=== PATIENT | male | born 1960 | race Caucasian/White ===

== ENCOUNTER → 2022-12-06 | Outpatient (CLI) | payer OTHER | END | disposition home or self-care (01) | LOC: LAB SHORT 07:07 → LAB 07:07 | DX: D11.0 Benign neoplasm of parotid gland (principal) | CPT/HCPCS: 88173 ==

== ENCOUNTER 2022-12-24 07:22 | Day surgery (SDC) | payer OTHER ==
[~2022-12-24] VITALS: Ht 182.9 cm; Wt 100.9 kg
[2022-12-24] MEDS ORDERED: LISI10 PO (08:23)
[2022-12-24] MEDS ORDERED: ATOR10 PO (08:23)
--- NOTE | 2022-12-24 10:24 | NUR ---
12/24/22 1024 Pauline Wade UNDER HEAD, PILLOW UNDER KNEES, RIGHT ARM TUCKED, LEFT ARM SECURED ON PADDED ARM BOARD.
--- NOTE | 2022-12-24 11:48 | NUR ---
12/24/22 1148 ANAHI TABARES PT HAS A AVERY DRAIN, INSERTION BEHIND RIGHT EAR. EXTRA BACITRACIN GIVEN TO PT FOR HOME
--- NOTE | 2022-12-24 12:03 | NUR ---
12/24/22 1203 Zamzam Castle PT EDUCATED ON USE OF INCENTIVE SPIROMETER. PT STATED THEIR UNDERSTANDING.
[2022-12-24 12:06] VITALS: BP 109/71
== END 2022-12-24 12:30 | disposition home or self-care (01) ==
LOC: ORSCSDS 07:22
PROVIDERS: Otolaryngology
PROC: 0CB80ZZ Excision of Right Parotid Gland, Open Approach (ICD-10-PCS; principal; 2022-12-24 08:45)
DX: D11.0 Benign neoplasm of parotid gland (principal); I10 Essential (primary) hypertension; E78.5 Hyperlipidemia, unspecified; I25.10 Atherosclerotic heart disease of native coronary artery without angina pectoris; Z87.891 Personal history of nicotine dependence; Z79.899 Other long term (current) drug therapy
CPT/HCPCS: 88307; J1100; J2250; J2405; J2704; J3010; J7120

== ENCOUNTER 2023-06-25 11:08 | Day surgery (SDC) | payer OTHER ==
[2023-06-25] VITALS (16 sets, daily range): BP systolic 99–139; BP diastolic 65–95
[~2023-06-25] VITALS: Ht 182.9 cm; Wt 95.5 kg
[~2023-06-25 11:08] MED LIST: ATOR10 PO; IBUP400 PO; LISI10 PO
--- NOTE | 2023-06-25 13:02 | NUR ---
Ambulatory in Day Surgery Patient confirms NPO status and agrees with scheduled surgery. History, Chart, Medications and Allergies reviewed before start of procedure.Pre-Op teaching done. Pt verbalizes understanding.
--- NOTE | 2023-06-25 18:49 | NUR ---
PT ARRIVED TO UNIT FROM PACU. SPOUSE BEDSIDE. PT A&OX4. DENIES PAIN. DRESSING TO RLE CDI/ARIADNE WRAP AND AQUACEL. POLAR PACK IN PLACE.
[2023-06-26 02:37] VITALS: BP 115/73
--- NOTE | 2023-06-26 05:01 | NUR ---
SUMMARY PT DISCOMFORT HAS BEEN MINIMAL. PT AMBULATORY WITH GB AND FWW. PT HAS BEEN EATING AND DRINKING. PT HAS NO COMPLAINTS. PT DRESSING C/D/I. CALL LIGHT IN REACH.
[2023-06-26 05:28] LABS: BASOPHILS ABSOLUTE AUTO 0.04 K/mm3 (0.00-0.23); BASOPHILS PERCENT AUTO 0 % (0-2); EOSINOPHILS ABSOLUTE AUTO 0.06 K/mm3 (0.00-0.68); EOSINOPHILS PERCENT AUTO 0 % (0-6); Hematocrit 44.6 % (37.0-53.0); Hemoglobin 15.3 g/dL (13.5-17.5); IMMATURE GRAN ABSOLUTE AUTO 0.06 K/mm3 (0.00-0.10); IMMATURE GRAN PERCENT AUTO 0 % (0-1); LYMPHOCYTES ABSOLUTE AUTO 1.95 K/mm3 (0.84-5.20); LYMPHOCYTES PERCENT AUTO 12 % (21-46); MONOCYTES ABSOLUTE AUTO 0.97 K/mm3 (0.16-1.47); MONOCYTES PERCENT AUTO 6 % (4-13); Mean Corpuscular HGB 32.3 pg (26.0-34.0); Mean Corpuscular HGB Conc 34.3 g/dL (31.5-36.5); Mean Corpuscular Volume 94 fL (80-100); Mean Platelet Volume 10.6 fL (9.1-12.4); NEUTROPHILS PERCENT AUTO 81 % (41-73); Platelet Count 230 K/mm3 (150-400); RDW Coefficient Variation 12.8 % (11.7-14.2); RDW Standard Deviation 44.2 fL (35.1-46.3); Red Blood Cell Count 4.73 M/mm3 (4.30-5.90); White Blood Cell Count 16.18 K/mm3 (4.00-11.30)
[2023-06-26 05:59] LABS: Bun/Creatinine Ratio 12.5 (12.0-20.0); Calcium, Blood 9.4 mg/dL (8.5-10.1); Creatinine, Blood 0.56 mg/dL (0.60-1.20); Potassium, Blood 4.1 mmol/L (3.5-5.5)
[2023-06-26 08:26] VITALS: BP 146/85
[2023-06-26] MEDS ORDERED: ASPI81CH PO (08:31)
[2023-06-26] MEDS ORDERED: Percocet 5-3251 EACH PO (08:31)
--- NOTE | 2023-06-26 09:28 | NUR ---
DISCHARGE NOTE: PATIENT AND WERE EDUCATED ON DISCHARGE INSTRUCTIONS. BOTH VERBALIZED UNDERSTANDING OF INSTRUCTIONS AND HAD NO FURTHER QUESTIONS AT THIS TIME. IV WAS TAKEN OUT AND WNL. PAIN IS MANAGED WITH PO PAIN MEDS. HARD PERSCRIPTIONS WERE GIVEN TO . HIS RIGHT KNEE HAS AN ARIADNE WRAP AND AQUACEL THAT ARE BOTH C/D/I. DENIES NUMBNESS OR TINGLING IN ALL EXTREMITIES. HE IS A SBA WITH FWW AND GAIT BELT. HE IS TOLERATING PO INTAKE AND IS VOIDING. PATIENT IS DRESSED AND HAS PERSONAL ITEMS IN THE ROOM GATHERED. PATIENT WAS WHEELCHAIRED OUT TO WIFES CAR TO BE TAKEN HOME.
== END 2023-06-26 09:30 | disposition home or self-care (01) ==
LOC: ORSCMMR 11:08 → ORD 12:30 → SURS 19:00 → ORSCMMR 06-26 09:30
PROVIDERS: Orthopaedic Surgery
PROC: 0SRC0JA Replacement of Right Knee Joint with Synthetic Substitute, Uncemented, Open Approach (ICD-10-PCS; principal; 2023-06-25 12:30)
DX: M17.11 Unilateral primary osteoarthritis, right knee (principal); E78.5 Hyperlipidemia, unspecified; I10 Essential (primary) hypertension; E78.00 Pure hypercholesterolemia, unspecified; Z79.899 Other long term (current) drug therapy
CPT/HCPCS: 36415; 73560-RT; 80048; 85025; 97110; 97112; 97161; A9270; C1713; C1776; J0171; J0690; J0735; J1885; J2250; J2704; J2795; J7120

== ENCOUNTER 2024-10-05 07:54 | Day surgery (SDC) | payer OTHER ==
[~2024-10-05] VITALS: Ht 182.9 cm; Wt 95.6 kg
[2024-10-05] VITALS (20 sets, daily range): BP systolic 100–160; BP diastolic 72–127
[~2024-10-05 07:54] MED LIST changes: +ASPI81CH PO; +Lactated Ringer's 1,000 ML IV SCH; +Percocet 5-3251 EACH PO
[2024-10-05] MEDS ORDERED: propofoL 40 ML IV ONE (07:59)
--- NOTE | 2024-10-05 08:12 | NUR ---
Ambulatory in Day Surgery WITH STEADY GAIT. History, Chart, Medications and Allergies reviewed before start of procedure. Pre-Op teaching done. Pt verbalizes understanding. Patient States Post-Procedure ride home has been arranged WITH [employer]. Patient confirms NPO status and agrees with scheduled surgery.
--- NOTE | 2024-10-05 08:17 | NUR ---
10/05/24 0817 Pauline Reynoso History, Chart, Medications and Allergies reviewed before start of procedure. Patient confirms NPO status and agrees with scheduled surgery. CONFIRMED AND REVIEWED H&P, MEDCICATIONS, ALLERGIES, MEDICAL HISTORY, RESPIRATORY HISTORY, VITAL SIGNS, 3-LEAD EKG, CONSENTS, AND PHYSICIAN ORDERS. PATIENT CONFIRMS NPO STATUS AND AGREES WITH SCHEDULED PROCEDURE. MONITOR INTACT WITH CONTINUOUS PULSE OXIMETRY, CAPNOGRAPHY, 3-LEAD EKG, INTERMITTENT BP. SUPPLEMENTAL O2 TO BE TITRATED THROUGHOUT PROCEDURE TO MAINTAIN O2 SATURATION ABOVE 90%. PATIENT DETERMINED TO BE ASA APPROPRIATE FOR PROPOFOL SEDATION PRIOR TO START OF PROCEDURE BY DR. FLETCHER. MALLAMPATI CLASS 2 AIRWAY: COMPLETE VISUALIZATION OF THE UVULA.
--- NOTE | 2024-10-05 09:21 | NUR ---
Patient up to Ambulate independently. Gait steady. Discharge instructions reviewed with patient. Patient verbalizes understanding. Copy given to patient to take home, [facility] FAMILY. Patient States Post-Procedure ride home has been arranged. Discharged via wheelchair to private car for ride home. PT TOLERATING PO, REPORTS READY TO GO HOME. PER DR FLETCHER PT TO SKIP/3 YEARS.
== END 2024-10-05 09:21 | disposition home or self-care (01) ==
LOC: ORSCMMR 07:54 → ORD 08:30 → ORSCMMR 09:21
DX: R19.5 Other fecal abnormalities (principal); D12.4 Benign neoplasm of descending colon; D12.3 Benign neoplasm of transverse colon; D12.5 Benign neoplasm of sigmoid colon; K62.1 Rectal polyp; K63.5 Polyp of colon; K64.8 Other hemorrhoids; K62.4 Stenosis of anus and rectum; I25.10 Atherosclerotic heart disease of native coronary artery without angina pectoris; I25.2 Old myocardial infarction; Z79.82 Long term (current) use of aspirin; Z79.899 Other long term (current) drug therapy
CPT/HCPCS: 88305; J2704; J7120